=== PATIENT | male | born 1930 | race Caucasian/White ===

== ENCOUNTER 2017-01-07 13:52 | Emergency (ER) | payer OTHER ==
[~2017-01-07] VITALS: Ht 185.4 cm; Wt 94.1 kg
[2017-01-07 14:33] LABS: EOSINOPHIL (%) 5.3 % (0-5); EOSINOPHIL COUNT 0.5 K/uL (0-0.3); HEMATOCRIT 38.1 % (38.0-50.0); IMMATURE GRANULOCYTE (%) 0.5 % (0.0-0.7); INSTRUMENT ABS NEUTROPHIL CT 5.8 K/uL; LYMPHOCYTE COUNT 1.3 K/uL (1.0-2.8); MCH 30.3 PG (29.0-34.0); MCHC 33.6 G/DL (30.0-36.0); MCV 90.1 FL (86-99); MEAN PLAT.VOLUME 9.3 uM^3 (9.0-12.4); MONOCYTE COUNT 0.9 K/uL (0-0.8); NEUTROPHIL (%) 68.6 % (45-76); NEUTROPHIL COUNT 5.8 K/uL (1.8-6.4); PLATELET COUNT 191 K/uL (156-360); RBC DIS.WIDTH-CV 14.4 % (11.8-14.6); RBC DIS.WIDTH-SD 47.8 % (39-53); RED BLOOD COUNT 4.23 M/uL (4.00-5.50); WHITE BLOOD COUNT 8.5 K/uL (4.1-10.2)
[2017-01-07 14:50] LABS: CHLORIDE 104 mEq/L (99-109); POTASSIUM 4.1 mEq/L (3.7-5.4); SODIUM 138 mEq/L (136-147)
[2017-01-07 14:51] LABS: GLUCOSE 99 mg/dL (70-99)
[2017-01-07 14:53] LABS: ANION GAP 10 MEQ/L (2-14)
[2017-01-07 14:55] LABS: GFR ESTIMATE (CALCULATED) 38 mL/min/
[2017-01-07 14:56] LABS: UREA NITROGEN (BUN) 23 mg/dL (9-23)
[2017-01-07 18:37] VITALS: BP 168/85
== END 2017-01-07 18:38 ==
LOC: EME → EDBD 13:52 → EME 13:52
PROVIDERS: Emergency Medicine
DX: G30.9 Alzheimer's disease, unspecified (principal); F02.80 Dementia in other diseases classified elsewhere, unspecified severity, without behavioral disturbance, psychotic disturbance, mood disturbance, and anxiety; R26.2 Difficulty in walking, not elsewhere classified; Z91.81 History of falling; Z95.2 Presence of prosthetic heart valve
CPT/HCPCS: 70450; 71010; 80048; 85025; 99281; 99284

== ENCOUNTER 2017-02-24 20:04 | Inpatient (IN) | payer OTHER ==
[~2017-02-24] VITALS: Ht 180.3 cm; Wt 96.3 kg
[2017-02-24 20:49] LABS: BASOPHIL (%) 0.2 % (0-1); EOSINOPHIL (%) 0.1 % (0-5); HEMATOCRIT 36.3 % (38.0-50.0); HEMOGLOBIN 12.4 G/DL (12.5-16.6); IMMATURE GRANULOCYTE (%) 0.7 % (0.0-0.7); LYMPHOCYTE (%) 4.9 % (15-42); LYMPHOCYTE COUNT 0.6 K/uL (1.0-2.8); MCH 30.7 PG (29.0-34.0); MCHC 34.2 G/DL (30.0-36.0); MCV 89.9 FL (86-99); MONOCYTE (%) 6.4 % (3-12); MONOCYTE COUNT 0.8 K/uL (0-0.8); NEUTROPHIL (%) 87.7 % (45-76); NEUTROPHIL COUNT 10.6 K/uL (1.8-6.4); PLATELET COUNT 187 K/uL (156-360); RBC DIS.WIDTH-CV 14.6 % (11.8-14.6); RBC DIS.WIDTH-SD 47.7 % (39-53); RED BLOOD COUNT 4.04 M/uL (4.00-5.50); WHITE BLOOD COUNT 12.1 K/uL (4.1-10.2)
[2017-02-24 20:57] LABS: ALBUMIN 3.7 g/dL (3.2-4.8)
[2017-02-24 20:58] LABS: CHLORIDE 104 mEq/L (99-109); POTASSIUM 4.3 mEq/L (3.7-5.4); SODIUM 134 mEq/L (136-147)
[2017-02-24 21:00] LABS: GLUCOSE 170 mg/dL (70-99); TOTAL PROTEIN 7.5 g/dL (6.4-8.3)
[2017-02-24 21:02] LABS: TOTAL BILIRUBIN 0.6 mg/dL (0.0-1.0)
[2017-02-24 21:03] LABS: ALKALINE PHOSPHATASE 78 IU/L (3-129)
[2017-02-24 21:04] LABS: GFR ESTIMATE (CALCULATED) 34 mL/min/ (58.99-99999)
[2017-02-24 21:05] LABS: AST (GOT) 24 IU/L (2-34); DIRECT BILIRUBIN 0.2 mg/dL (0.0-0.3); UREA NITROGEN (BUN) 29 mg/dL (9-23)
[2017-02-24 21:07] LABS: ALT (GPT) 23 IU/L (3-49)
[2017-02-24 22:03] LABS: APPEARANCE CLEAR ((CLEAR)); BILIRUBIN NEGATIVE; BLOOD SMALL; COLOR YELLOW ((YELLOW)); GLUCOSE (STRIP) NEGATIVE; KETONES NEGATIVE; LEUKOCYTES NEGATIVE; NITRITE NEGATIVE; PROTEIN (STRIP) 30; SPECIFIC GRAVITY 1.015 (1.000-1.030); UROBILINOGEN 0.2 MG/DL (0.2-1.0)
[2017-02-24 22:05] LABS: BACTERIA RARE /HPF; EPITHELIAL CELLS RARE /HPF; MUCUS TRACE /LPF; RED BLOOD CELLS 0-5 /HPF (0-5); UCUL ADDED? NO; WHITE BLOOD CELLS 0-5 /HPF (0-5)
[2017-02-24 23:22] LABS: BASE EXCESS 0.5 mEq/L (-3 to +3); BICARBONATE 24.6 mEq/L (22-26); CARBOXY HGB 1.7 % (0-5); COMMENTS - BLOOD GASES C+; DEVICE NC; METHEMOGLOBIN 1.2 % (0-1.5); O2 FLOW 5 L/MIN; PCO2 37 mm Hg (35-45); PO2 66 mm Hg (80-100); SITE LR; TOTAL RESP RATE 22 resp/min; pH 7.43 (7.35-7.45)
[2017-02-25] MEDS ORDERED: AMLODIPINE BESYL5 MG PO (01:13)
[2017-02-25] MEDS ORDERED: ALLOPURINOL300 MG PO (01:13)
[2017-02-25] MEDS ORDERED: ADULT ASPIRIN R81 MG PO (01:13)
[2017-02-25] MEDS ORDERED: FLUOXETINE HCL20 MG PO (01:13)
[2017-02-25] MEDS ORDERED: METOPROLOL SUC100 MG PO (01:14)
[2017-02-25] MEDS ORDERED: DAILY VALUE1 EACH PO (01:14)
[2017-02-25] MEDS ORDERED: TYLENOL EXTRA500 MG PO ×2 (01:14→01:15)
[2017-02-25] MEDS ORDERED: VITAMIN D31000 UNI2 PO (01:14)
[2017-02-25] MEDS ORDERED: FLEET ENEMA-AD118 ML PR (01:15)
[2017-02-25] MEDS ORDERED: PHILLIPS'400 MG/5 M PO (01:15)
[2017-02-25 02:27] LABS: ALBUMIN 3.4 g/dL (3.2-4.8); CHLORIDE 105 mEq/L (99-109); POTASSIUM 4.3 mEq/L (3.7-5.4); SODIUM 138 mEq/L (136-147)
[2017-02-25 02:29] LABS: GLUCOSE 179 mg/dL (70-99)
[2017-02-25 02:30] LABS: TOTAL PROTEIN 6.9 g/dL (6.4-8.3)
[2017-02-25 02:31] LABS: TOTAL BILIRUBIN 0.7 mg/dL (0.0-1.0)
[2017-02-25 02:33] LABS: ALKALINE PHOSPHATASE 68 IU/L (3-129); CREATININE 2.1 mg/dL (0.6-1.3); GFR ESTIMATE (CALCULATED) 32 mL/min/ (58.99-99999)
[2017-02-25 02:34] LABS: UREA NITROGEN (BUN) 33 mg/dL (9-23)
[2017-02-25 02:36] LABS: ALT (GPT) 24 IU/L (3-49); AST (GOT) 42 IU/L (2-34)
[2017-02-25 06:33] VITALS: BP 145/63
== END 2017-02-25 15:04 | DRG 871 ==
LOC: EME 20:04 → EDOF 02-25 01:23 → 5WEST 02-25 01:23 → ENRESERV 02-25 01:23 → EDOF 02-25 05:09 → ENRESERV 02-25 05:14 → 5WEST 02-25 06:33
PROVIDERS: Emergency Medicine; Physician Assistant Medical
DX: A41.9 Sepsis, unspecified organism (principal); J69.0 Pneumonitis due to inhalation of food and vomit; J96.01 Acute respiratory failure with hypoxia; I63.9 Cerebral infarction, unspecified; E87.1 Hypo-osmolality and hyponatremia; G91.2 (Idiopathic) normal pressure hydrocephalus; I12.9 Hypertensive chronic kidney disease with stage 1 through stage 4 chronic kidney disease, or unspecified chronic kidney disease; N18.3 Chronic kidney disease, stage 3 (moderate); G30.9 Alzheimer's disease, unspecified; F02.80 Dementia in other diseases classified elsewhere, unspecified severity, without behavioral disturbance, psychotic disturbance, mood disturbance, and anxiety; R73.9 Hyperglycemia, unspecified; F32.9 Major depressive disorder, single episode, unspecified; Z66 Do not resuscitate; Z51.5 Encounter for palliative care; M10.9 Gout, unspecified; Z95.2 Presence of prosthetic heart valve; N20.0 Calculus of kidney; I35.0 Nonrheumatic aortic (valve) stenosis; Z79.82 Long term (current) use of aspirin
CPT/HCPCS: 36600; 70450; 71045; 74176; 80048; 80048 91; 80053; 80061; 80076; 81003; 82803; 83036; 83605; 85025; 87040; 87077; 87186; 87502; 87801; 94640; 94644; 99202; 99281; 99285; J1815; J1940; J1956; J2270; J2405; J2765; J3010; J3370; J7120